=== PATIENT | male | born 1955 | race Caucasian/White ===

== ENCOUNTER 2019-08-05 07:49 | Outpatient (CLI) | payer OTHER, SELFPAY ==
--- NOTE | 2019-08-05 07:55 | ECG_ITS ---
Lung unchanged pre/post procedure; Intraprocedure shortess of breath; Symptoms resoled by discharge Inferior and lateral ST DEPRESSION NOTED. IMPROVED BY DISCHARGE. DR URIAS, THE NUCLEAR WENT TO DR MENCHACA HE IS ON NUCLEAR CALL PROCEDURE: The baseline electrocardiogram showed normal sinus rhythm with normal ST-Ts poor R wave progression. At the baseline, the patient's blood pressure was 140/87 mm Hg with a heart rate of 81. The patient exercised for 6 minutes on a standard Zhen protocol. Patient attained a maximum heart rate of 137 beats per minute( 88 % of the maximum predicted heart rate) with a blood pressure at the peak exercise of 206/87 mm Hg. The EKG at the peak exercise revealed 1 to 1.[address] depressions in leads II, III, aVF, V5 and V6.. Patient did not have any chest pain or any significant arrhythmis with the exercise. Patient was mainly complaining of exertional dyspnea. Sestamibi was injected 1 minute prior to the peak exercise During the recovery phase, there is persistent nonspecific ST-T changes in the inferolateral leads. Blood pressure at the end of the recovery phase was 151/93 mm Hg with a heart rate of 93 per minute. CONCLUSION: 1. Abnormal EKG response to treadmill exercise suggestive of inferolateral wall ischemia. Prolonged recovery time. 2. Exercise-induced shortness of breath. No exercise-induced chest pain or cardiac arrhythmia. 3. Slightly impaired exercise tolerance, attained a maximum of 7.0 METs 4. Sestamibi/Sestamibi perfusion results pending; see separate report. Electronically Signed On 08-05-2019 11:45:50 CDT by Mikel Urias M.D. [email or web address]
[2019-08-05 08:02] VITALS: BMI 32.1
--- NOTE | 2019-08-05 08:24 | NMCV_ITS ---
NM carlos alberto perf SPECT r/s* [id number] Cy Can Age: 63 Gender: M : 1955 Exam Date: 08/05/2019 09:03 Ordering Phys: Conrado Sellers MD Technologist: MATILDE Villalba Exam Location: [facility] Indications: DECREASED EXERCISE TOLERANCE STRESS TEST Please see separate stress test report in [facility] for full findings IMAGE PROTOCOL Rest/Stress 1 Exercise Day Radiopharmaceutical Dose (mCi) Administration Site Administered by Rest: Tc-99m 10.6 IV MATILDE Villalba Sestamibi Stress:Tc-99m 32.5 IV MATILDE Nieto Sestamibi Rest: 05-Aug-2019 60 Discovery 630 Stress: 05-Aug-2019 15 Discovery 630 Radiopharmaceutical was injected at 85 % maximum heart rate. Images obtained in supine and prone position. SPECT RESULTS Technical Quality: Excellent Raw Data Analysis: Normal Image Corrections: No attenuation or motion correction applied Summed Stress Score: 14 Summed Rest Score: 0 Summed Difference Score: 14 PERFUSION FINDINGS Medium-sized area of fixed perfusion defect noted in basal to distal inferior inferoseptal and inferolateral wall suggestive of old myocardial infarction versus scarring. Large area of moderate to severe reversibility noted in mid to distal lateral wall suggestive of large area of moderate ischemia in circumflex territory. This study is positive for ischemia. EKG segment will be documented separately. FUNCTIONAL RESULTS (calculated via Gated SPECT) Stress Image LV EF (%): 65 Stress EDV (mL):95 TID: 0.83 Stress ESV (mL):33 FUNCTIONAL FINDINGS: There appeared to be inferior and lateral wall hypokinesia IMPRESSIONS Medium-sized area for myocardial infarction versus scarring noted in basal distal inferior, inferoseptal and inferolateral wall suggestive of RCA . Large area of moderate ischemia noted in mid to distal lateral wall suggestive of possible lesion in circumflex territory. EKG segment will be documented separately Miguel Grimes MD (Electronically Signed) Final Date: 05 August 2019 11:54 S
--- NOTE | 2019-08-05 09:50 | SUR.PREOP ---
Patient reports no pain or discomfort prior to the start of the procedure.
[2019-08-05 10:09] VITALS: BP 153/93; PULSE 93
== END 2019-08-05 07:50 | disposition home or self-care (01) ==
LOC: CDL 07:54
PROVIDERS: Family Provider Family Medicine; Visit Provider Family Medicine
DX: R68.89 Other general symptoms and signs (principal); R94.31 Abnormal electrocardiogram [ECG] [EKG]
CPT/HCPCS: 78452; 93017; A9500

== ENCOUNTER → 2019-08-06 13:34 | Outpatient (BNVA) | payer OTHER, SELFPAY | PROVIDERS: Family Provider Family Medicine; PCP Family Medicine; Referring Provider Family Medicine; Visit Provider Internal Medicine Cardiovascular Disease | DX: I10 Essential (primary) hypertension (principal) | CPT/HCPCS: 80048; 85025; 87635 ==

== ENCOUNTER 2019-08-12 12:06 | Observation (INO) | payer OTHER, SELFPAY ==
[2019-08-11 11:44] VITALS: BMI 32.2
[2019-08-12] VITALS (25 sets, daily range): BP systolic 105–154; BP diastolic 61–90; PULSE 69–86; RESP 14–27; TEMP 37; O2SAT 95–98
--- NOTE | 2019-08-12 07:30 | XACV_ITS ---
Ht: 180 cm Wt: 105 kg BSA: 2.32 m2 Gender: Male : 1955 Any Known Allergies: No known allergies Exam Priority: Routine Procedure(s): Procedure Description: Diagnostic procedure Procedure Description: PCI procedure Procedure Description: Drug Eluting Coronary Stent Procedure Description: PTCA Procedure Description: Miscellaneous Procedure Description: ACT Procedure Description: Coronary Angiography Diagnostic Cath Status: Elective Diagnostic Findings LM has 0% stenosis. pLAD to mLAD: Mild 30% stenosis, TONY: 3 flow. CIRC AV: Severe 90% stenosis, TONY: 2 flow. Second Obtuse Marginal Branch Segment: Severe 90% stenosis, TONY: 3 flow. Ramus: Severe 95% stenosis, TONY: 2 flow. pRCA to mRCA: Severe 100% stenosis, TONY: 0 flow. Coronary angiography shows left dominance. PCI Status: Elective PCI Indication: New Onset Angina <= 2 months Interventional Findings CIRC AV: 90% stenosis treated with AB TREK 2.50X25 RX BALLOON. 30% residual stenosis, TONY: 3 flow. Second Obtuse Marginal Branch Segment: 90% stenosis treated with MDT R SANCHEZ 2.25X12 LACY. 0% residual stenosis, TONY: 3 flow. Ramus: 95% stenosis treated with AB MINI TREK 2.00X8 RX BALLOON and MDT R SANCHEZ 2.0X08 LACY. 0% residual stenosis, TONY: 3 flow. Conclusions There is severe coronary artery disease with four vessel disease. CIRC AV was treated with Balloon. Second Obtuse Marginal Branch Segment was treated with Drug Eluting Stent. Ramus was treated with Balloon and Drug Eluting Stent. Indication for coronary angiogram: Worsening of shortness of breath chest pain and abnormal stress test#1 Left main is normal#2 LAD has luminal irregularity with proximal 30% stenosis, it is moderate size and caliber long vessel without significant stenosis in the rest of segments#3 Ramus intermedius is a moderate size and caliber bifurcating vessel with subtotal mid occlusion#4 obtuse marginal 2 is moderate size and caliber vessel with mid 90% stenosis#5 groove circumflex is moderate size and caliber dominant vessel with distal long 90% stenosis#6 RCA is nondominant vessel with chronic proximal occlusion. Recommendations 1-Return to inpatient for close monitoring and routine cath care 2-Risk factor modification for secondary prevention 3-Statin and aspirin 81 mg life--long, if tolerated 4-Patient was pre-loaded with 600 mg of Plavix, continue Plavix 75mg p.o. daily for at least one year. We will assess at the end of one year again to continue if further or not 5-Continue optimal medical management 6-Follow up with Dr. Grimes in four weeks and your primary care in 10 days . Interventional RX Recommendation: PCI w/o planned CABG Diagnostic RX Recommendation: PCI w/o planned CABG Pressures Phase:Rest AO : 96 mmHg / 77 mmHg ( 87 mmHg ) @ 5:54:00 AM 104 mmHg / 79 mmHg ( 92 mmHg ) @ 5:55:00 AM 112 mmHg / 77 mmHg ( 93 mmHg ) @ 6:03:00 AM 123 mmHg / 73 mmHg ( 95 mmHg ) @ 6:18:00 AM 120 mmHg / 69 mmHg ( 92 mmHg ) @ 6:28:00 AM Clinical Evaluation EBL: 5mL-10mL Procedural Details Procedure Consent Obtained. Current Diagnosis : Chest Pain. Pre-Procedure Time Out. Identified patient by full name and date of as verbalized by the patient/guarantor. Procedure started. Does the consent match the physician's order: Yes. Accurate & Complete Informed Consent: Yes. Inpatient/Outpatient History & Physical on Chart: Yes. If H&P is completed, is and addenduem needed: Yes; If yes, is the addendum complete: Yes. Visualize and Verify Site with Patient/Guarantor: N/A. Relevant Radiology Images available: Yes. The risks, benefits, and alternatives of sedation and/or procedure were discussed by physician. The patient agrees to continue. Pre-op teaching completed and patient verbalized understanding. [facility] Clinical Fraility Score: 3: Managing Well. Property Field Inspector Indications: Suspected CAD. Chest Pain Symptom Assessment: Typical Angina Symptoms. Correct patient, site and procedure confirmed by cath team. Current diagnosis: Chest Pain. PERRLA. Strong, equal hand instructional technology teacher bilaterally. Lungs clear x 5 lobes. IV Site on Arrival: 18 gauge in the left anticubital. IV Fluids: 0.9% NaCl at KVO. 0 mL infused prior to canvas shop laborer. Pre Procedural Pulses: bilateral dorsalis pedis was 1+. Pre Procedural Pulses: bilateral posterior tibial was 2+. Pre Procedural Pulses: right radial was 3+. Oxygen started at 2liters/min via nasal canula. right groin was prepped with chloroprep then draped in the usual sterile fashion. right radial was prepped with chloroprep then draped in the usual sterile fashion. Baseline sample Acquired. HR: 76 BPM. Physician notified. Patient's family unavailable. Physician arrived. Physician scrubbed in. Immediate Pre-Procedure Time Out. Correct Patient: Yes; Correct Procedure: Yes; Correct Site: Yes; Correct Patient Position: Yes; Correct Supplies: Yes; Dried Flammable Prep: Yes; Blood Products Available: N/A;. Lidocaine 1% infiltrated to the right radial. Arterial access obtained. A 5 yi TIG catheter in over wire. Multiple views taken of left coronary artery. Catheter redirected to the RCA. Multiple views taken of right coronary artery. Catheter removed over the exchange wire. 6 yi XB 3.5 guide catheter was inserted over the wire. Guthrie guidewire was advanced through the guide catheter to lesion in the OM. Inflation Number : 1 Charisma Silva SANCHEZ 2.25X12 LACY -Lot Number# [id number] Exp: 10/30/2020 was prepped and advanced across the 2nd Ob Casi. The stent was deployed at 14 PAUL for 0:20 seconds. Stent balloon out over wire. Guthrie repositioned to Ramus. 2.0x8 balloon inserted OTW. Balloon out. Guide reseated. Inflation number : 1 A AB MINI TREK 2.00X8 RX BALLOON was prepped and advanced across the Ramus , then inflated to 10 PAUL for 0:15 seconds. Inflation number: 2 The AB MINI TREK 2.00X8 RX BALLOON was reinflated across the Ramus, to 10 PAUL for 0:11 seconds. Results checked. Balloon out. Inflation Number : 3 A MDShaunna R SANCHEZ 2.0X08 LACY -Lot Number# _[id number] Exp: 08/31/2019 was prepped and advanced across the Ramus. The stent was deployed at 16 PAUL for 0:46 seconds. Guthrie repositioned to distal Circ. Inflation number : 1 A AB TREK 2.50X25 RX BALLOON was prepped and advanced across the Dist CX , then inflated to 20 PAUL for 0:44 seconds. Inflation number: 2 The AB TREK 2.50X25 RX BALLOON was reinflated across the Dist CX, to 16 PAUL for 0:13 seconds. Inflation number: 3 The AB TREK 2.50X25 RX BALLOON was reinflated across the Dist CX, to 16 PAUL for 0:23 seconds. Inflation number: 4 The AB TREK 2.50X25 RX BALLOON was reinflated across the Dist CX, to 16 PAUL for 0:15 seconds. Wire out. Guide catheter out. Physician scrubbed out. ACT drawn. Results 256 seconds. Therapeutic limits - pre-heparin administration 90-150 seconds and monitoring heparin during a vascular procedure >250 seconds. TR band placed. Hemostasis obtained. Post Procedure: Pulses reassessed and unchanged. PERRLA. Strong, equal hand instructional technology teacher bilaterally. No VTE prophylaxis required. Medication's Wasted: Lidocaine 1% = 18 mL. Medication's Wasted: Nitro = 49.6 mcg. Total IV fluids: 100 mL. Contrast type used: Visipaque 320 mgI/mL, 500 mL bottle. Post-op diagnosis: CAD. Complications: none. Estimated blood loss: 5mL-10mL. Procedure completed. Vital chart was stopped. Site: Right Radial artery Sheath Size: 6 Fr Hemostasis Success: Unsuccessful Procedure Medications Start: 10:47 AM Stop: 10:47 AM Medication: Versed Amount: 1 mg Route: I.V. Start: 10:47 AM Stop: 10:47 AM Medication: Fentanyl Amount: 50 mcg Route: I.V. Start: 10:50 AM Stop: 10:50 AM Medication: Nitrogylcerin Amount: 200 mcg Route: I.A. Start: 10:54 AM Stop: 10:54 AM Medication: Heparin Amount: 5000 units Route: I.V. Start: 10:55 AM Stop: 10:55 AM Medication: Versed Amount: 1 mg Route: I.V. Start: 10:55 AM Stop: 10:55 AM Medication: Fentanyl Amount: 50 mcg Route: I.V. Start: 10:57 AM Stop: 10:57 AM Medication: Heparin Amount: 5000 units Route: I.V. Start: 11:36 AM Stop: 11:36 AM Medication: Nitrogylcerin Amount: 200 mcg Route: I.C. I, the attending physician, have reviewed and verified all procedure medications. Yes, all medications given per verbal order History/Risk Factors Hypertension: Yes Dyslipidemia: Yes Diabetic Therapy: Oral Peripheral Arterial Disease (PAD): No Myocardial Infarction (PA): No Obesity: Yes Renal Disease: No Tobacco Use: Never Prior Interventions PCI: Yes CABG: No Valve Surgery: No Report Signatures Finalized by:Miguel Grimes MD on 08/23/2019 6:23:07 PM
[2019-08-12] MEDS: diphenhydrAMINE 50 mg Capsule PO (09:21)
--- NOTE | 2019-08-12 09:47 | PC.NURSE ---
An attempt of a 20g PIV to the left forearm was made by Glenn Fritz RN, MILL OPERATOR HELPER. This nurse started an 18g in the left AC x 1 attempt. The patient tolerated well.
--- NOTE | 2019-08-12 10:35 | W.PM.OPSUD ---
Surgery/Procedure H&P Update DATE OF PROCEDURE: August 12, 2019 DATE H&P PERFORMED: 08/06/19 H&P UPDATE INFORMATION: I have reviewed H&P completed within last 30 days, I have examined patient prior to procedure and No changes to prior documentation PREOP DIAGNOSIS: Abnormal stress test/angina/established coronary artery disease with history of stents PLANNED PROCEDURE: Operation Date: 08/12/19 10:00 Proposed Procedures p Cardiac Catheterization(Left) - Miguel Grimes MD PATIENT REASSESSED PRIOR TO SEDATION, WITH NO CHANGE NOTED: Yes PHYSICAL EXAM: alert, oriented x 3, clear to auscultation bilaterally and regular rate & rhythm AIRWAY EVAL/ANESTHESIA PLAN: normal airway, see other exam findings, ASA II, Risks, benefits & alternatives of sedation and/or procedure discussed and Patient agrees to continue as planned
--- NOTE | 2019-08-12 13:00 | PC.NURSE ---
Pt stated he took Metoprolol, Plavix and a baby aspirin this morning prior to coming to hospital for cath. Nurse notified.
--- NOTE | 2019-08-12 13:00 | PC.NURSE ---
Released 3mls of air in TR Band. Site began to ooze. Reinflated. Instructed pt not to push or lift with right hand.
[2019-08-12 13:09] LABS: Glucose Point of Care 125 mg/dL (70-110)
[2019-08-12] MEDS: aspirin 81 mg EC Tablet PO (13:10)
[2019-08-12] MEDS: clopidogrel 75 mg Tablet PO (13:10)
[2019-08-12] MEDS: metoprolol succinate ER (24 HR) 50 mg Tablet PO (13:11)
--- NOTE | 2019-08-12 15:17 | PC.NURSE ---
1500 2cc removed from tr band. no oozing noted. will monitor.
--- NOTE | 2019-08-12 15:25 | PC.NURSE ---
1530 2 cc removed from trband
--- NOTE | 2019-08-12 15:40 | PC.NURSE ---
1540 another 2cc removed from tr band. no oozing noted at this time.
[2019-08-12 16:36] LABS: Glucose Point of Care 122 mg/dL (70-110)
--- NOTE | 2019-08-12 16:48 | PC.NURSE ---
1640 2ml removed from tr band no oozing. band removed. bandaide applied. instructions to not use hand or wrist and to call for any drainage. will monitor.
[2019-08-12] MEDS: atorvastatin 40 mg Tablet 80 MG PO (17:25)
[2019-08-12] MEDS: sodium chloride 0.9% 1,000 ML 100 ML IV (17:32)
--- NOTE | 2019-08-12 17:56 | PC.NURSE ---
right radial cath site w/o edema minimal drainage to bandaid.
--- NOTE | 2019-08-12 19:04 | PC.NURSE ---
Shift report received from MARLEN Alvarez. Patient is resting comfortably. Vital signs are stable. No complaints of pain or shortness of breath at this time. Bandaid over TR band removal site is clean and no drainage is noted. Pulse is 3+ and regular at site. Bed in lowest position, call light in place. No concerns at this time. Will continue to monitor.
--- NOTE | 2019-08-12 20:22 | PC.NURSE ---
Dr. Umanzor at bedside. Patient reports no complaints. Dr. Umanzor to put in order to discharge.
--- NOTE | 2019-08-12 21:06 | PC.NURSE ---
Patient given discharge instructions. Reinforced need to continue all home meds especially Plavix. Patient expressed understanding. Post-cath activity instructions discussed. Patient verbalized understanding. Patient voiced understanding of need to call Dr. Umanzor's office to arrange follow up appointments. IV catheter removed, cath tip in place, tolerated well. 2100 Patient discharged to private vehicle.
== END 2019-08-12 21:00 | disposition home or self-care (01) ==
LOC: ICU 12:07
PROVIDERS: Admitting Provider Internal Medicine Cardiovascular Disease; PCP Family Medicine; Visit Provider Internal Medicine Cardiovascular Disease
DX: I25.10 Atherosclerotic heart disease of native coronary artery without angina pectoris (principal); R94.39 Abnormal result of other cardiovascular function study; Z95.5 Presence of coronary angioplasty implant and graft; I10 Essential (primary) hypertension; E78.5 Hyperlipidemia, unspecified; E66.9 Obesity, unspecified; Z68.32 Body mass index [BMI] 32.0-32.9, adult; R07.89 Other chest pain; Z79.82 Long term (current) use of aspirin; E11.9 Type 2 diabetes mellitus without complications
CPT/HCPCS: 12345; 36415; 36416; 82962; 85347; 92921; 93454; C1725; C1769; C1874; C1887; C1894; C9600; C9601; G0378; J1644; J2001; J2250; J3010; J3490; J7030; Q0163; Q9967

== ENCOUNTER → 2019-08-20 11:25 | Outpatient (BNVA) | payer MEDICARE, SELFPAY | PROVIDERS: PCP Family Medicine; Visit Provider Nurse Practitioner Family | DX: I25.119 Atherosclerotic heart disease of native coronary artery with unspecified angina pectoris (principal); Z09 Encounter for follow-up examination after completed treatment for conditions other than malignant neoplasm | CPT/HCPCS: 80048 ==

== ENCOUNTER 2020-05-19 12:39 | Outpatient (CLI) | payer MEDICARE, SELFPAY ==
--- NOTE | 2020-05-19 13:30 | USCV_ITS ---
Cy Can Age: 64 Gender: M : 1955 Exam Date: 05/19/2020 13:46 Ordering Phys: Miguel Grimes MD ([email or web address]) Technologist: Anne Marie Urban [place] [facility] [place]: Cardiac murmur, unspecified BP: / HR: 84 Rhythm: Sinus Technical Quality: Adequate MEASUREMENTS (Male / Female) Normal Values 2D ECHO LV Diastolic Diameter PLAX 3.6 cm 4.2 - 5.9 / 3.9 - 5.3 cm LV Systolic Diameter PLAX 2.8 cm LV Chamber Size 4.8 cm IVS Diastolic Thickness 1.9 cm 0.6 - 1.0 / 0.6 - 0.9 cm IVS Systolic Thickness 2.0 cm LVPW Diastolic Thickness 1.1 cm 0.6 - 1.0 / 0.6 - 0.9 cm LVPW Systolic Thickness 1.6 cm RV Chamber Size 3.4 cm LVOT Diameter 2.0 cm LV Ejection Fraction 2D Teich 45.3 % LV Ejection Fraction MOD 2C 69.1 % LV Ejection Fraction 2C AL 70.1 % LA Diameter 3.0 cm LA Width 3.9 cm LA Height 4.3 cm RA Width 3.2 cm RA Height 5.1 cm Aorta at Sinotubular Diameter 2.7 cm M-MODE LV Diastolic Diameter MM 5.0 cm 4.2 - 5.9 / 3.9 - 5.3 cm LV Systolic Diameter MM 2.9 cm LV Ejection Fraction MM Teich 73.5 % IVS Diastolic Thickness MM 1.1 cm 0.6 - 1.0 / 0.6 - 0.9 cm IVS Systolic Thickness MM 1.8 cm LVPW Diastolic Thickness MM 1.5 cm 0.6 - 1.0 / 0.6 - 0.9 cm LVPW Systolic Thickness MM 2.0 cm RV Diastolic Diameter MM 1.1 cm Aortic Annulus Diameter 3.1 cm LA Ao Ratio MM 1.2 MV E Point Septal Separation 0.4 cm DOPPLER AV Peak Velocity 199.8 cm/s LVOT Peak Velocity 101.0 cm/s AV Area Cont Eq vti 1.7 cm squared AV Area Cont Eq pk 1.6 cm squared MV Area PHT 2.5 cm squared Mitral E to A Ratio 0.9 MV E' Velocity 50.5 cm/s Mitral E to MV E' Ratio 11.8 Mitral E to LV E' Lateral Ratio 10.8 Mitral E to LV E' Septal Ratio 13.0 TR Peak Velocity 187.0 cm/s TR Peak Gradient 14.0 mmHg TV Peak E Velocity 54.0 cm/s Right Atrial Pressure 3.0 mmHg Pulmonary Artery Systolic Pressu 17.0 mmHg PV Peak Velocity 78.0 cm/s RV Acceleration Time 0.1 s RV Ejection Time 0.3 s RV AcT/ET 0.3 FINDINGS Left Ventricle Normal left ventricular cavity size. Normal left ventricular systolic function. No regional wall motion abnormalities. Left ventricular ejection fraction is estimated at 70 %. Grade I/IV diastolic dysfunction (abnormal relaxation filling pattern), normal to mildly elevated filling pressures. Right Ventricle The right ventricle is normal in size and function. Right Atrium The right atrium is normal in size. Left Atrium The left atrium is normal in size. Mitral Valve Moderately thickened mitral valve. Moderate mitral annular calcification. No mitral valve stenosis. Aortic Valve Severe aortic valve calcification. Moderate aortic valve stenosis, mean gradient 9.6 mmHg, JAMEEL 1.7 cm squared. Trace aortic valve regurgitation. Tricuspid Valve Structurally normal tricuspid valve without significant stenosis or regurgitation. Pulmonary artery systolic pressure is normal. Pulmonic Valve Structurally normal pulmonic valve without significant stenosis. There is no pulmonic regurgitation. Pericardium Normal pericardium without effusion. Aorta Normal ascending aorta dimension. CONCLUSIONS 1-Normal left ventricular cavity size. Normal left ventricular systolic function. No regional wall motion abnormalities. Left ventricular ejection fraction is estimated at 70 %. Grade I/IV diastolic dysfunction (abnormal relaxation filling pattern), normal to mildly elevated filling pressures. 2-Severe aortic valve calcification. Moderate aortic valve stenosis, mean gradient 9.6 mmHg, JAMEEL 1.7 cm squared. Trace aortic valve regurgitation. 3-Moderately thickened mitral valve. Moderate mitral annular calcification. No mitral valve stenosis. 4-There is no pericardial effusion. 5-Pulmonary artery systolic pressure is within normal limits. 6-Right atrial pressure is around 5 mm of mercury. 7-There are no prior echocardiogram studies to compare. Miguel Grimes MD (Electronically Signed) Final Date: 20 May 2020 20:27 S
== END 2020-05-19 12:40 | disposition home or self-care (01) ==
LOC: US 12:42
PROVIDERS: PCP Family Medicine; Visit Provider Internal Medicine Cardiovascular Disease
DX: R01.1 Cardiac murmur, unspecified (principal); I35.0 Nonrheumatic aortic (valve) stenosis; I05.9 Rheumatic mitral valve disease, unspecified
CPT/HCPCS: 93306

== ENCOUNTER → 2021-03-08 11:19 | Outpatient (BNVA) | payer MEDICARE, SELFPAY | PROVIDERS: PCP Family Medicine; Visit Provider Nurse Practitioner | DX: W45.8XXA Other foreign body or object entering through skin, initial encounter (principal); S60.552A Superficial foreign body of left hand, initial encounter | CPT/HCPCS: 73120 ==